=== PATIENT | male | born 1970 | race Caucasian/White ===

== ENCOUNTER 2018-07-25 19:34 | Emergency (ER) | payer OTHER, MEDICAID ==
--- NOTE | 2018-07-25 21:00 | ER Document Report ---
ED Medical Screen (RME) - General Chief Complaint: Chest Pain Stated Complaint: CHEST PAIN Time Seen by Provider: 07/25/18 20:53 Mode of Arrival: Medic Information source: Patient Notes: 48-year-old male with history of alcohol abuse, tobacco abuse, high blood pressure here for burning substernal chest pain that was nonradiating with shortness of breath. According to the female family member in the room, he is been having episodes of this frequently over the past week. He is never been worked up for chest pain before I have treated and performed a rapid initial assessment of this patient. A comprehensive ED assessment and evaluation of the patient, analysis of test results and completion of medical decision making process will be conducted by additional ED providers. PHYSICAL EXAMINATION: GENERAL: No acute distress. Smells of alcohol LUNGS: Breath sounds clear to auscultation bilaterally and equal. No wheezes rales or rhonchi. HEART: Regular rate and rhythm ABDOMEN: Soft, nondistended abdomen. No guarding, no rebound. Normal bowel sounds present. No CVA tenderness bilaterally. + mild epigastric tenderness (cannot elicit thorough abd exam w/o table, however). Extremities: No cyanosis, clubbing, or edema b/l. NEUROLOGICAL: Normal speech, normal gait. PSYCH: Normal mood, normal affect. TRAVEL OUTSIDE OF THE [place] IN LAST 30 DAYS: No Physical Exam - Vital signs Vitals: Temp Pulse Resp BP Pulse Ox 98.1 F 65 16 153/94 H 94 07/25/18 19:57 07/25/18 19:57 07/25/18 19:57 07/25/18 19:57 07/25/18 19:57 Course - Vital Signs Vital signs: Temp Pulse Resp BP Pulse Ox 98.1 F 65 16 153/94 H 94 07/25/18 19:57 07/25/18 19:57 07/25/18 19:57 07/25/18 19:57 07/25/18 19:57
[2018-07-25 21:20] LABS: ABSOLUTE BASOPHILS # (AUTO) 0.1 10^3/uL (0.0-0.2); ABSOLUTE EOSINOPHILS # (AUTO) 0.1 10^3/uL (0.0-0.6); ABSOLUTE LYMPHOCYTES (AUTO) 3.6 10^3/uL (0.5-4.7); ABSOLUTE NEUT (AUTO) 4.5 10^3/uL (1.7-8.2); BASOPHILS % (AUTO) 1.2 % (0-2); EOSINOPHILS % (AUTO) 1.3 % (0-6); HEMATOCRIT 41.8 % (37.9-51.0); HEMOGLOBIN 14.5 g/dL (13.5-17.0); LYMPHOCYTES % (AUTO) 38.3 % (13-45); MEAN CORPUSCULAR HEMOGLOBIN 31.9 pg (27.0-33.4); MEAN CORPUSCULAR HGB CONC 34.7 g/dL (32.0-36.0); MEAN CORPUSCULAR VOLUME 92 fl (80-97); PLATELET COUNT 151 10^3/uL (150-450); RED BLOOD COUNT 4.53 10^6/uL (4.35-5.55); RED CELL DISTRIBUTION WIDTH 14.5 % (11.5-14.0); SEGMENTED NEUTROPHILS % (AUTO) 48.2 % (42-78); TOTAL CELLS COUNTED % (AUTO) 100 %; WHITE BLOOD COUNT 9.4 10^3/uL (4.0-10.5)
--- NOTE | 2018-07-25 21:33 | RADIOLOGY REPORT (SQ) ---
EXAM DESCRIPTION: XR CHEST 2 VIEWS COMPLETED DATE/TME: 07/25/2018 20:58 CLINICAL HISTORY: 48 years, Male, chest pain Comparison: None FINDINGS: No focal lung consolidation. No pleural effusion. No pneumothorax. Cardiac and mediastinal silhouette is unremarkable. No acute osseous abnormality. Soft tissues are unremarkable. IMPRESSION: No acute findings. No focal lung consolidation.
[2018-07-25 21:34] LABS: ALANINE AMINOTRANSFERASE 60 U/L (21-72); ALBUMIN 4.7 g/dL (3.5-5.0); ALKALINE PHOSPHATASE 53 U/L (38-126); ANION GAP 11 (5-19); ASPARTATE AMINO TRANSFERASE 127 U/L (17-59); BILIRUBIN,DIRECT 0.2 mg/dL (0.0-0.4); BILIRUBIN,TOTAL 0.5 mg/dL (0.2-1.3); BLOOD UREA NITROGEN 9 mg/dL (7-20); CALCIUM 9.7 mg/dL (8.4-10.2); CARBON DIOXIDE 24 mmol/L (22-30); CHLORIDE 101 mmol/L (98-107); CREATINE KINASE 832 U/L (55-170); GLUCOSE 85 mg/dL (75-110); POTASSIUM 4.1 mmol/L (3.6-5.0); SODIUM 135.8 mmol/L (137-145); TOTAL PROTEIN 7.8 g/dL (6.3-8.2)
[2018-07-25 21:44] LABS: CREATINE KINASE MB 34.3 ng/mL (<4.55)
[2018-07-25 22:04] LABS: TROPONIN I 11.5 ng/mL
[2018-07-25] MEDS ORDERED: ASPIRIN 81 MG TABLET, CHEWABLE PO ONE (22:13)
[2018-07-25] MEDS ORDERED: ATORVASTATIN CALCIUM 80 MG TABLET PO ONE (22:13)
[2018-07-25] MEDS ORDERED: ENOXAPARIN SODIUM INJ 80 MG/0.8 ML DISP.SYRIN SUBCUT SCH (22:15)
[2018-07-25] MEDS: NITROGLYCERIN 0.4 MG/TAB 25 TAB/BOTTLE SL PRN ×2 (22:27→22:44)
--- NOTE | 2018-07-25 22:38 | ER Document Report ---
ED General - General Chief Complaint: Chest Pain Stated Complaint: CHEST PAIN Time Seen by Provider: 07/25/18 20:53 Mode of Arrival: Medic Notes: Patient is a 48-year-old male with a past medical history of essential hy pertension, chronic tobacco abuse, chronic alcohol abuse, presents with approximately 1 week of intermittent chest pain that has become progressively more severe. Patient reports that over the past 1 week each time he would exert himself such as while cutting lawn he would develop a burning, throbbing, heavy chest discomfort. States that the discomfort would come on abruptly and would resolve with rest. States that the pain woke him up from sleep last evening and has been going on since that time. At the time of my evaluation he states that there is a continued burning discomfort in his chest that he regards as being very mild in nature. Improved with sublingual nitroglycerin that was provided by urgent care. Not worsened by anything other than exertion. Denies associated nausea, vomiting, diaphoresis or shortness of breath. Denies any known history of coronary artery disease. Is visiting from [place]. TRAVEL OUTSIDE OF THE [place] IN LAST 30 DAYS: No - Related Data Allergies/Adverse Reactions: No Known Allergies Allergy (Unverified 07/25/18 23:01) Past Medical History - General Information source: Patient - Social History Smoking Status: Never Smoker Chew tobacco use (# tins/day): No Frequency of alcohol use: None Drug Abuse: None Lives with: Family Family History: Reviewed & Not Pertinent Patient has suicidal ideation: No Patient has homicidal ideation: No Renal/ Medical History: Denies: Hx Peritoneal Dialysis Review of Systems - Review of Systems Notes: Constitutional: Negative for fever. HENT: Negative for sore throat. Eyes: Negative for visual changes. Cardiovascular: Positive for chest pain. Respiratory: Negative for shortness of breath. Gastrointestinal: Negative for abdominal pain, vomiting or diarrhea. Genitourinary: Negative for dysuria. Musculoskeletal: Negative for back pain. Skin: Negative for rash. Neurological: Negative for headaches, weakness or numbness. 10 point ROS negative except as marked above and in HPI. Physical Exam - Vital signs Vitals: Temp Pulse Resp BP Pulse Ox 98.1 F 65 16 153/94 H 94 07/25/18 19:57 07/25/18 19:57 07/25/18 19:57 07/25/18 19:57 07/25/18 19:57 Interpretation: Hypertensive Notes: PHYSICAL EXAMINATION: GENERAL: Appears mildly uncomfortable but in no acute distress HEAD: Atraumatic, normocephalic. EYES: Pupils equal round and reactive to light, extraocular movements intact, sclera anicteric, conjunctiva are normal. ENT: nares patent, oropharynx clear without exudates. Moist mucous membranes. NECK: Normal range of motion, supple without lymphadenopathy LUNGS: Breath sounds clear to auscultation bilaterally and equal. No wheezes rales or rhonchi. HEART: Regular rate and rhythm without murmurs ABDOMEN: Soft, nontender, normoactive bowel sounds. No guarding, no rebound. No masses appreciated. EXTREMITIES: Normal range of motion, no pitting or edema. No cyanosis. NEUROLOGICAL: No focal neurological deficits. Moves all extremities spontaneously and on command. PSYCH: Normal mood, normal affect. SKIN: Warm, Dry, normal turgor, no rashes or lesions noted. Course - Re-evaluation Re-evalutation: 07/25/18 22:38 Patient presents with intermittent exertional chest pain for the past 1 week and now with an episode of chest pain that woke him up from sleep. EKG shows right bundle branch block, unchanged from EKG obtained at urgent care. Minimal chest pain at time of my evaluation. Troponin is elevated however at 11.5. Patient requires transfer for cardiac catheterization and likely stenting. I have contacted [facility], spoke to Dr. Cintron who is accepted the patient for transfer in the morning when they have a bed. The patient is chest pain-free after receiving nitroglycerin. Will continue to keep on monitor, obtain serial labs, patient has already received aspirin, enoxaparin, atorvastatin, heart rate is low enough that beta-blockers would not likely add benefit. Of additional concern the patient is a chronic alcohol abuser, admits to withdrawal he does not drink. Valium ordered as needed as needed for withdrawal. 07/25/18 2300 Patient has been accepted to [facility] by Dr. Cintron although they do not have beds available at this point. [facility] protocol active. Awaiting transport. Repeat troponin will be obtained after midnight. Will continue to reassess. Patient denies any current chest discomfort or shortness of breath. 07/26/18 03:00 Patient is not having any significant chest discomfort although states there is some mild burning. On nitroglycerin infusion is been started. Repeat EKG shows no changes from previous. Troponin has had a market elevation to 22. [facility] was again contacted to be updated on elevation of troponin, advised continuation of current plan. - Vital Signs Vital signs: Temp Pulse Resp BP Pulse Ox 97.8 F 65 12 121/74 97 07/26/18 02:54 07/25/18 19:57 07/26/18 03:31 07/26/18 03:31 07/26/18 03:31 - Laboratory Result Diagrams: 07/25/18 21:04 07/25/18 21:04 Laboratory results interpreted by me: 07/25/18 07/25/18 07/25/18 21:04 21:04 21:04 RDW 14.5 H Sodium 135.8 L AST 127 H Creatine Kinase 832 H CK-MB (CK-2) 34.30 H - Diagnostic Test Radiology reviewed: Image reviewed, Reports reviewed Radiology results interpreted by me: 07/26/18 03:43 Chest x-ray: No acute infiltrate or pneumothorax - EKG Interpretation by Me Additional EKG results interpreted by me: 07/26/18 03:43 EKG 1: Sinus rhythm, rate 70, right bundle branch block present. No ST elevations or depressions EKG 2: Sinus rhythm, rate 68, right bundle branch block present. Unchanged from previous. Critical Care Note - Critical Care Note Total time excluding time spent on procedures (mins): 36 Comments: Critical care time spent obtaining history from patient or surrogate, discussions with consultants, development of treatment plan with patient or surrogate, evaluation of patient's response to treatment, examination of patient, ordering and performing treatments and interventions, ordering and review of laboratory studies, re-evaluation of patient's condition, ordering and review of radiographic studies and review of old charts Discharge - Discharge Clinical Impression: NSTEMI (non-ST elevated myocardial infarction), Alcohol abuse, Tobacco abuse Condition: Fair Disposition: [facility]
[2018-07-25] MEDS ORDERED: DIAZEPAM INJ 10 MG/2 ML DISP.SYRIN IV PRN (22:40)
[2018-07-26] MEDS ORDERED: NITROGLYCERIN/D5W 50 MG/250 ML RTUINJ IV ONE (02:40)
[2018-07-26] MEDS ORDERED: NITROGLYCERIN/D5W 50 MG/250 ML RTUINJ IV PRN (03:08)
--- NOTE | 2018-07-26 06:04 | ER Document Report ---
Doctor's Note Notes: 07/26/18 06:03 Transport will be here in the next few minutes for the patient. He has been stable throughout the night with no complaints. Vital signs are stable at this time, patient is stable for transfer to [facility].
[2018-07-26 06:22] VITALS: BP 110/95
--- NOTE | 2018-07-26 19:14 | EKG REPORT ---
SEVERITY:- ABNORMAL ECG - SINUS RHYTHM PROBABLE LEFT ATRIAL ABNORMALITY RIGHT BUNDLE BRANCH BLOCK : Confirmed by: Opal Frias MD 26-Jul-2018 19:13:07
--- NOTE | 2018-07-26 19:14 | EKG REPORT ---
SEVERITY:- ABNORMAL ECG - SINUS RHYTHM RIGHT BUNDLE BRANCH BLOCK : Confirmed by: Opal Frias MD 26-Jul-2018 19:13:10
--- NOTE | 2018-07-26 19:14 | EKG REPORT ---
SEVERITY:- ABNORMAL ECG - SINUS RHYTHM RIGHT BUNDLE BRANCH BLOCK : Confirmed by: Opal Frias MD 26-Jul-2018 19:13:13
== END 2018-07-26 06:22 | disposition short-term general hospital (02) ==
LOC: ER 19:34
DX: I21.4 Non-ST elevation (NSTEMI) myocardial infarction (principal); R07.9 Chest pain, unspecified; I10 Essential (primary) hypertension; I45.10 Unspecified right bundle-branch block; F10.10 Alcohol abuse, uncomplicated; Z72.0 Tobacco use
CPT/HCPCS: 93005 ×2; 36415; 82553; 82550; 85025; 80053; 84484; 71046; 93010 ×2; J3360; J3490; J1650